=== PATIENT | male | born 1995 | race Caucasian/White ===

== ENCOUNTER 2018-10-04 07:16 | Emergency (ER) | payer BC ==
[~2018-10-04] VITALS: Ht 188 cm; Wt 72.7 kg
[2018-10-04 09:52] VITALS: BP 134/74
== END 2018-10-04 10:52 | disposition home or self-care (01) ==
LOC: ER 07:17
DX: R51 Headache (principal)
CPT/HCPCS: 70450; 99284

== ENCOUNTER 2021-02-26 08:14 | Day surgery (SDC) | payer BC ==
[~2021-02-26] VITALS: Ht 188 cm; Wt 67.3 kg
[2021-02-26 08:12] VITALS: BP 143/72
[2021-02-26] MEDS ORDERED: IBUP-1986 PO (08:18)
[2021-02-26] MEDS ORDERED: fentaNYL/PF 50MCG/1 ML 2ML syringe ONE (08:32)
[2021-02-26] MEDS ORDERED: MIDAZolam 1 MG/ML 5ML VIAL ONE (08:32)
[2021-02-26] MEDS ORDERED: LIDOcaine Viscous 15ml cup ONE (08:32)
[2021-02-26 09:04] VITALS: BP 129/70
[2021-02-26 09:14] VITALS: BP 107/64
[2021-02-26 09:24] VITALS: BP 108/58
[2021-02-26 09:34] VITALS: BP 117/65
== END 2021-02-26 09:45 | disposition home or self-care (01) ==
LOC: GI LAB 08:14
PROVIDERS: ATTEND Specialist
DX: R13.19 Other dysphagia (principal); K22.8 Other specified diseases of esophagus; K21.00 Gastro-esophageal reflux disease with esophagitis, without bleeding; K29.50 Unspecified chronic gastritis without bleeding; G43.909 Migraine, unspecified, not intractable, without status migrainosus; Z79.899 Other long term (current) drug therapy
CPT/HCPCS: 43239; 99152; J2250; J3010; J7040; A4620